=== PATIENT | female | born 1975 | race Caucasian/White ===

== ENCOUNTER 2024-05-04 14:29 | Emergency (ER) | payer OTHER ==
[~2024-05-04] VITALS: Ht 154.9 cm; Wt 86.2 kg
[~2024-05-04 14:29] MED LIST: SYNTHROID88 MCG; VASOTEC2.5 MG
[2024-05-04] MEDS ORDERED: SYNTHROID100 MCG PO (15:45)
[2024-05-04] MEDS ORDERED: FOLIC ACID0.4 MG PO (15:46)
[2024-05-04 15:48] VITALS: BP 142/87; O2SAT 98
[2024-05-04] MEDS ORDERED: KETOROLAC TROMETHAMINE 30 MG VIAL IU ONE (16:30)
[2024-05-04] MEDS ORDERED: ONDANSETRON HCL 2 MG/ML VIAL IV ONE (16:30)
[2024-05-04] MEDS ORDERED: 0.9 % SODIUM CHLORIDE 1,000 ML IV ONE (16:30)
[2024-05-04] MEDS ORDERED: FAMOtidine 10 MG/ML (4ML VIAL) IV ONE (16:30)
[2024-05-04 17:58] LABS: HEMOGLOBIN 14.4 g/dL (12.0-15.00); MEAN CELL VOLUME 89.4 fL (80.00-100.00); MEAN CORPUSCULAR HEMOGLOBIN 31.4 pg (27.00-32.0); MEAN CORPUSCULAR HGB CONC 35.1 g/dl (32.0-36.0); PLATELET COUNT 258 K/uL (150-450); RED BLOOD COUNT 4.59 M/uL (4.00-6.00); RED CELL DISTRIBUTION WIDTH 13.6 % (11.5-14.5)
[2024-05-04 18:16] LABS: ALBUMIN 4.3 gm/dL (3.4-5.0); BILIRUBIN TOTAL 0.56 mg/dL (0.3-1.2); CALCIUM 9.5 mg/dL (8.5-10.1); CREATININE SERUM 0.65 mg/dL (0.55-1.02); GFR 96.48; GLOBULINA 4.1 G/DL (2.4-3.5); POTASSIUM 4.15 mEq/L (3.5-5.1); TOTAL PROTEIN 8.4 gm/dL (6.4-8.2)
[2024-05-04 18:25] LABS: PH,URINE 7.5 (5.0-8.0); URINE APPEARANCE Clear; URINE BILIRRUBIN Negative (NEGATIVE); URINE BLOOD Negative; URINE COLOR Yellow; URINE GLUCOSE Negative (NEGATIVE); URINE KETONE Negative (NEGATIVE); URINE LEUKOCYTE Trace; URINE NITRATE Negative; URINE PROTEIN Negative (NEGATIVE); URINE UROBILINOGEN 0.2 E.U./dl
[2024-05-04 18:29] LABS: URINE BACTERIA 1757.5 uL (0.0-1933); URINE EPITHELIAL CELLS 92.3 uL (0.0-38.8); URINE RBC 5.1 uL (0.0-20.8); URINE WBC 26.1 uL (0.0-23.2)
[2024-05-04] MEDS ORDERED: MEPERIDINE HCL/PF 25 MG/ML VIAL IV ONE (20:45)
[2024-05-04] MEDS ORDERED: MACROBID 100 M100 MG PO (21:46)
[2024-05-04] MEDS ORDERED: PEPCID AC20 MG PO (21:46)
[2024-05-04] MEDS ORDERED: KETO10TA2 PO (21:48)
== END 2024-05-04 22:03 | disposition home or self-care (01) ==
LOC: ER 14:29
PROVIDERS: General Practice
DX: R10.32 Left lower quadrant pain (principal); R10.9 Unspecified abdominal pain; I10 Essential (primary) hypertension; E03.8 Other specified hypothyroidism; E11.9 Type 2 diabetes mellitus without complications; Z88.2 Allergy status to sulfonamides

== ENCOUNTER 2024-12-26 05:35 | Emergency (ER) | payer OTHER ==
[~2024-12-26] VITALS: Ht 154.9 cm; Wt 79.4 kg
[~2024-12-26 05:35] MED LIST changes: +FOLIC ACID0.4 MG PO; +KETO10TA2 PO; +MACROBID 100 M100 MG PO; +PEPCID AC20 MG PO; +SYNTHROID100 MCG PO
[2024-12-26] MEDS ORDERED: LISINOPRIL5 MG (05:53)
[2024-12-26] MEDS ORDERED: KETOROLAC TROMETHAMINE 60 MG VIAL IM STA (07:00)
[2024-12-26] MEDS ORDERED: TRIAMCINOLONE ACETONIDE 40 MG/ML VIAL IM STA (07:00)
[2024-12-26] MEDS ORDERED: TRAMADOL HCL50 MG PO (07:31)
[2024-12-26] MEDS ORDERED: MELOXICAM15 MG PO (07:31)
== END 2024-12-26 08:19 ==
LOC: ER 05:58
DX: S89.81XA Other specified injuries of right lower leg, initial encounter (principal); X58.XXXA Exposure to other specified factors, initial encounter; Y93.89 Activity, other specified; Y92.89 Other specified places as the place of occurrence of the external cause; Y99.9 Unspecified external cause status; I10 Essential (primary) hypertension; M79.7 Fibromyalgia; E03.9 Hypothyroidism, unspecified; Z88.2 Allergy status to sulfonamides

== ENCOUNTER 2025-01-04 14:52 | Emergency (ER) | payer OTHER ==
[~2025-01-04] VITALS: Ht 152.4 cm; Wt 81.6 kg
[~2025-01-04 14:52] MED LIST changes: +LISINOPRIL5 MG; +MELOXICAM15 MG PO; +TRAMADOL HCL50 MG PO
[2025-01-04 16:22] VITALS: BP 137/82; O2SAT 100
[2025-01-04] MEDS ORDERED: ONDANSETRON HCL 2 MG/ML VIAL IV ONE (17:00)
[2025-01-04] MEDS ORDERED: FAMOTIDINE/PF 20 MG/2 ML VIAL IV ONE (17:00)
[2025-01-04] MEDS ORDERED: LACTOBACILLUS ACIDOPHILUS 1 CAP CAP PO ONE (17:00)
[2025-01-04] MEDS ORDERED: 0.9 % SODIUM CHLORIDE 1,000 ML IV ONE (17:00)
[2025-01-04 18:02] LABS: BASO % 0.5 % (0.1-1.2); EOS # 0.09 (0.04-0.54); EOS % 1.1 % (0.7-7.0); LYMPH # 3.51 (1.18-3.74); LYMPH % 41.8 % (19.3-53.1); MEAN PLATELET VOLUME 10.20 fl (9.4-12.4); MONO # 0.90 (0.24-0.82); MONO % 10.7 % (4.7-12.5); NEUT # 3.83 (1.56-6.13); NEUT % 45.7 % (34.0-71.1); RED CELL DISTRIBUTION WIDTH 13.3 % (11.6-14.4)
[2025-01-04 18:17] LABS: URINE APPEARANCE Cloudy; URINE BILIRRUBIN Negative (NEGATIVE); URINE BLOOD Negative; URINE COLOR Yellow; URINE GLUCOSE Negative (NEGATIVE); URINE KETONE Trace (NEGATIVE); URINE LEUKOCYTE Negative; URINE NITRATE Negative; URINE PROTEIN 30 (NEGATIVE); URINE UROBILINOGEN 1.0 E.U./dl
[2025-01-04 18:20] LABS: URINE BACTERIA 1838.3 uL (0.0-1933); URINE CAST 2.19 uL (0.0-1.40); URINE EPITHELIAL CELLS 27.6 uL (0.0-38.8); URINE RBC 133.7 uL (0.0-20.8); URINE WBC 43.8 uL (0.0-23.2)
[2025-01-04 18:35] LABS: ALT/SGPT 92.0 U/L (12-78); AST/SGOT 39.0 U/L (15-37); BILIRUBIN TOTAL 0.59 mg/dL (0.3-1.2); BUN CREA RATIO 22.0 (7.0-25.0); CREATININE SERUM 0.68 mg/dL (0.55-1.02); GFR 91.22; GLOBULINA 4.0 G/DL (2.4-3.5); GLUCOSE FASTING 89.0 mg/dL (65-100); OSMOLALITY SERUM 282.0 MOSM/KG (275-295)
[2025-01-04 18:36] LABS: COVID-19 AG NEGATIVE (NEGATIVE)
[2025-01-04 18:44] LABS: TYPE CELLS SQUAMOUS
[2025-01-04 18:45] LABS: URINE CRYSTALS MODERATE /HPF; URINE MUCUS MODERATE
[2025-01-04] MEDS ORDERED: INTESTINEX680 M1 PO (19:11)
[2025-01-04] MEDS ORDERED: ZOFRAN8 MG PO (19:11)
[2025-01-04] MEDS ORDERED: PEPCID AC20 MG PO (19:11)
[2025-01-04] MEDS ORDERED: CIPRO500 MG PO (19:11)
== END 2025-01-04 19:42 | disposition home or self-care (01) ==
LOC: ER 14:59
PROVIDERS: General Practice
DX: A05.9 Bacterial foodborne intoxication, unspecified (principal); K52.9 Noninfective gastroenteritis and colitis, unspecified; Z20.822 Contact with and (suspected) exposure to COVID-19; Z88.2 Allergy status to sulfonamides; I10 Essential (primary) hypertension; E03.9 Hypothyroidism, unspecified; M79.7 Fibromyalgia